=== PATIENT | male | born 1975 | race Caucasian/White ===

== ENCOUNTER 2019-05-06 08:22 | Day surgery (SDC) | payer BC ==
[2019-05-05 12:22] LABS: CLARITY,URINE CLEAR (Clear); COLOR,URINE YELLOW (Yellow); GLUCOSE, URINE NEGATIVE (Neg); KETONES,URINE NEGATIVE (Neg); LEUKOCYTE ESTERASE ,URINE NEGATIVE (Neg); NITRITES, URINE NEGATIVE (Neg); OCCULT BLOOD,URINE NEGATIVE (Neg); PROTEIN,URINE NEGATIVE (Neg); UROBILINOGEN,URINE 0.2 E.U/dL (0.2-1.0)
[2019-05-05 12:27] LABS: UA COLLECTION TYPE NON-SPECIFIED
[2019-05-05 12:30] LABS: BASOPHILS # (AUTO) 0.1 X10'3 (0-0.2); BASOPHILS % (AUTO) 0.9 % (0-1); EOSINOPHILS # (AUTO) 0.4 X10'3 (0-0.9); LYMPHOCYTES % (AUTO) 32.8 % (21-51); MEAN CORPUSCULAR HEMOGLOBIN 29.9 PG (27.0-31.0); MEAN CORPUSCULAR HGB CONC 34.3 g/dL (33.0-36.5); MEAN PLATELET VOLUME 7.2 FL (7.4-10.4); MONOCYTES # (AUTO) 0.5 X10'3 (0-0.9); MONOCYTES % (AUTO) 9.2 % (2-12); NEUTROPHILS % (AUTO) 50.1 % (42-75); PRE OP HEMATOCRIT 41.8 % (42.0-52.0); PRE OP HEMOGLOBIN 14.3 g/dL (14.0-17.9); PRE OP PLATELET COUNT 289 X10'3 (140-440); RED CELL DISTRIBUTION WIDTH 12.7 % (11.5-14.5)
[2019-05-05 12:35] LABS: ALBUMIN 3.5 G/DL (3.4-5.0); ALBUMIN/GLOBULIN RATIO 0.9 (1.1-1.5); ALKALINE PHOSPHATASE 96 IU/L (46-116); BLOOD UREA NITROGEN 14 MG/DL (7-18); BUN/CREATININE RATIO 14.4 (5.4-32.0); CALCIUM 8.3 MG/DL (8.5-10.1); CHLORIDE 107 MMOL/L (99-107); CREATININE 0.97 MG/DL (0.60-1.10); PRE OP ALT 28 U/L (30-65); PRE OP ANION GAP 4 (8-16); PRE OP AST 15 U/L (10-37); PRE OP BILIRUB, TOTAL 0.3 MG/DL (0.0-1.0); PRE OP GLUCOSE 110 MG/DL (70-104); PRE OP POTASSIUM 4.5 MMOL/L (3.4-5.1); PRE OP SODIUM 142 MMOL/L (135-145); TOTAL CARBON DIOXIDE 31.2 MMOL/L (24-32); TOTAL PROTEIN 7.2 G/DL (6.4-8.2); eGFR 85 ML/MIN
[2019-05-06] VITALS (13 sets, daily range): BP systolic 101–130; BP diastolic 56–80
[~2019-05-06] VITALS: Ht 180.3 cm; Wt 99.8 kg
[~2019-05-06 08:22] MED LIST: CARI350T28 PO; ZOLP10TA5 PO
[2019-05-06] MEDS ORDERED: ringers solution, lacted 1,000 ML IV SCH ×2 (08:30→11:35)
[2019-05-06] MEDS ORDERED: cefazolin/dext.iso 2gm/100 ML IV ONE (08:30)
[2019-05-06] MEDS ORDERED: famotidine 20mg tablet PO ONE (08:30)
[2019-05-06] MEDS ORDERED: ceFAZolin 1000mg inj ONE (10:49)
[2019-05-06] MEDS ORDERED: BUPIVACAINE liposomal/PF 13.3 MG/ML vial IM ONE (10:49)
[2019-05-06] MEDS ORDERED: BUPIVAcaine/PF 2.5mg/ml (0.25%) 10ml vial ONE (10:49)
[2019-05-06] MEDS ORDERED: sevoflurane 250ml liquid IH ONE (10:56)
[2019-05-06] MEDS ORDERED: LIDOcaine 1%/PF 5ML 10 MG/ML VIAL ONE (10:56)
[2019-05-06] MEDS ORDERED: fentaNYL /PF 50mcg/ml 5ml ampule ONE (11:00)
[2019-05-06] MEDS ORDERED: midazolam 2 mg/2 ml injection ONE (11:00)
[2019-05-06] MEDS ORDERED: LIDOcaine 2% (20mg/ml) 5ml vial ONE (11:07)
[2019-05-06] MEDS ORDERED: propofol inj 20 ML IV ONE (11:07)
[2019-05-06] MEDS ORDERED: ondansetron/PF 4mg/2ml inj ONE (11:08)
[2019-05-06] MEDS ORDERED: dexamethasone sod phosphate 4mg/ml inj. ONE (11:08)
[2019-05-06] MEDS ORDERED: ondansetron/PF 4mg/2ml inj IV PRN (11:35)
[2019-05-06] MEDS ORDERED: morphine 4 MG/ML inj SYRINge IV PRN ×2 (11:35)
[2019-05-06] MEDS ORDERED: proCHLORperazine 10 MG/2 ml inj IV PRN (11:35)
[2019-05-06] MEDS ORDERED: meperidine/PF 25mg/ml syringe IV PRN ×2 (11:35)
--- NOTE | 2019-05-06 12:10 | NUR ---
Received from OR via [facility], accompanied by Anesthesiologist DR. BLOOM and report given by Anesthesiolgist. PT ARRIVED SLEEPING. O2 VIA MASK AT 10L. PULSES AND CAMPUS RECRUITING COORDINATOR WNL. LEAVITT WITH GOOD CSM. DRESSING CDI
[2019-05-06] MEDS: meperidine/PF 25mg/ml syringe IV PRN ×2 (12:43→13:04)
[2019-05-06] MEDS ORDERED: HYDROcodone/acetaminophen 10/325mg tab PO ONE (13:15)
--- NOTE | 2019-05-06 14:30 | NUR ---
PT VOIDED QS. PT DC READY. ASSITED TO BE DRESSED BY . IV DC'D. DC INSTR READ TO PT AND . WRITTEN COPY PROVIDED FOR HOME. TO POV VIA WC FOR DC HOME, DRIVING.
== END 2019-05-06 14:30 | disposition home or self-care (01) ==
LOC: PAS 08:22
PROVIDERS: ATTEND Surgery
DX: K40.90 Unilateral inguinal hernia, without obstruction or gangrene, not specified as recurrent (principal); F41.9 Anxiety disorder, unspecified; Z88.5 Allergy status to narcotic agent; Z79.899 Other long term (current) drug therapy
CPT/HCPCS: 36415; 49505; 80053; 81003; 82948; 85025; 93005; C1781; C9290; J0690; J1100; J2001; J2175; J2250; J2270; J2405; J2704; J3010; J3490; A4215; A4618; A6449; A7000; J7120